=== PATIENT | female | born 1935 | race Caucasian/White ===

== ENCOUNTER 2020-12-13 10:12 | Emergency (ER) | payer BC ==
[~2020-12-13] VITALS: Ht 157.5 cm; Wt 59.1 kg
[~2020-12-13 10:12] MED LIST: ASPI-1265 PO; CHOL2000 PO; CYAN100061 IM; EST1T PO; LISI40TA13 PO; OMEP40CA13 PO; SYN0.1T PO
[2020-12-13 11:10] VITALS: BP 122/95
[2020-12-13] MEDS ORDERED: traMADol 50MG tablet PO ONE (11:50)
[2020-12-13] MEDS ORDERED: TRAM50TA2 PO (12:49)
== END 2020-12-13 13:09 | disposition home or self-care (01) ==
LOC: ER 10:13
DX: M25.532 Pain in left wrist (principal); I10 Essential (primary) hypertension; J44.9 Chronic obstructive pulmonary disease, unspecified; Z87.01 Personal history of pneumonia (recurrent); Z90.710 Acquired absence of both cervix and uterus; Z98.890 Other specified postprocedural states; Z88.2 Allergy status to sulfonamides; Z79.82 Long term (current) use of aspirin; Z79.899 Other long term (current) drug therapy
CPT/HCPCS: 29125; 73110; 73130; 99284

== ENCOUNTER 2021-07-01 15:03 | Emergency (ER) | payer BC ==
[~2021-07-01] VITALS: Ht 157.5 cm; Wt 56.8 kg
[~2021-07-01 15:03] MED LIST changes: -OMEP40CA13 PO; +OMEP40CA21 PO
[2021-07-01] MEDS ORDERED: BAMLANIVIMAB 700mg/20ml inj. 700 MG, ETESEVIMAB 700mg/20mL inj. 1,400 MG in normal sali... IV ONE (15:20)
[2021-07-01 18:46] VITALS: BP 177/80
== END 2021-07-01 18:47 | disposition home or self-care (01) ==
LOC: ER 15:04
DX: U07.1 COVID-19 (principal); R05.9 Cough, unspecified; R50.9 Fever, unspecified; R53.83 Other fatigue; I10 Essential (primary) hypertension; J44.9 Chronic obstructive pulmonary disease, unspecified; Z87.01 Personal history of pneumonia (recurrent); Z90.710 Acquired absence of both cervix and uterus; Z95.0 Presence of cardiac pacemaker; Z98.890 Other specified postprocedural states; Z88.2 Allergy status to sulfonamides; Z79.82 Long term (current) use of aspirin; Z79.899 Other long term (current) drug therapy
CPT/HCPCS: 71045; 99291; M0245; Q0245; Q0239

== ENCOUNTER 2023-06-05 15:18 | Inpatient (IN) | payer BC ==
[~2023-06-05] VITALS: Ht 157.5 cm; Wt 58.0 kg
[2023-06-05 15:36] LABS: BASOPHILS % (AUTO) 0.3 % (0-1); EOSINOPHILS # (AUTO) 0.2 X10'3 (0-0.9); EOSINOPHILS % (AUTO) 2.7 % (0-6); HEMATOCRIT 35.5 % (35.0-45.0); HEMOGLOBIN 11.9 g/dl (12.0-16.0); LYMPHOCYTES # (AUTO) 2.3 X10'3 (1.1-4.8); LYMPHOCYTES % (AUTO) 41.9 % (21-51); MEAN CORPUSCULAR HEMOGLOBIN 31.5 PG (27.0-31.0); MEAN CORPUSCULAR HGB CONC 33.6 g/dL (33.0-36.5); MEAN CORPUSCULAR VOLUME 93.9 FL (78-98); MEAN PLATELET VOLUME 8.5 FL (7.4-10.4); MONOCYTES # (AUTO) 0.4 X10'3 (0-0.9); MONOCYTES % (AUTO) 7.1 % (2-12); NEUTROPHILS # (AUTO) 2.6 X10'3 (1.8-7.7); PLATELET COUNT 224 X10'3 (140-440); RED BLOOD COUNT 3.78 X10'6 (4.20-5.60); RED CELL DISTRIBUTION WIDTH 13.4 % (11.5-14.5); WHITE BLOOD COUNT 5.5 X10'3 (4.5-11.0)
[2023-06-05 15:49] LABS: ALANINE AMINOTRANSFERASE 25 U/L (12-78); ALBUMIN 3.6 G/DL (3.4-5.0); ALBUMIN/GLOBULIN RATIO 1.1 (1.1-1.5); ALKALINE PHOSPHATASE 69 IU/L (46-116); ANION GAP 8 (8-16); ASPARTATE AMINO TRANSFERASE 25 U/L (10-37); BILIRUBIN,TOTAL 0.3 MG/DL (0.1-1.0); BLOOD UREA NITROGEN 9 MG/DL (7-18); BUN/CREATININE RATIO 8.6 (10.0-20.0); CALCIUM 9.1 MG/DL (8.5-10.1); CHLORIDE 100 MMOL/L (99-107); CREATININE 1.05 MG/DL (0.40-0.90); GLUCOSE 133 MG/DL (70-104); POTASSIUM 3.8 MMOL/L (3.5-5.1); SODIUM 135 MMOL/L (135-145); TOTAL CARBON DIOXIDE 27.2 MMOL/L (24-32); TOTAL PROTEIN 6.9 G/DL (6.4-8.2); eCRCL 29 ML/MIN; eGFR 49 ML/MIN
[2023-06-05 15:57] LABS: PRO BRAIN NATRIURETIC PEPTIDE 2320 PG/ML (0-450)
[2023-06-05] MEDS ORDERED: morphine 4 MG/ML inj SYRINge IV ONE (16:30)
[2023-06-05] MEDS ORDERED: furosemide 10 MG/1 ML 10ml inj IV ONE (16:30)
[2023-06-05] MEDS ORDERED: nitroGLYCERIN 0.4mg/hour patch TD ONE (16:30)
[2023-06-05] MEDS ORDERED: aspirin 81mg tab.chew PO ONE (16:30)
[2023-06-05] MEDS ORDERED: pantoprazole 40 MG vial IV ONE (16:30)
[2023-06-05] MEDS ORDERED: albuterol 2.5 MG/3 ML nebule NEB ONE (16:35)
[2023-06-05] MEDS ORDERED: pantoprazole 40MG/NS 100ML BAG 100 ML IV ONE (16:50)
[2023-06-05] MEDS ORDERED: SPIR25TA5 PO (16:52)
[2023-06-05] MEDS ORDERED: LEVO88TA2 PO (16:52)
[2023-06-05] MEDS ORDERED: APIX2.5T PO (16:52)
[2023-06-05] MEDS ORDERED: LISI40TA13 PO (16:52)
[2023-06-05] MEDS ORDERED: AMI200T PO (16:53)
[2023-06-05] MEDS ORDERED: PANT20TA18 PO (16:55)
[2023-06-05] MEDS ORDERED: ESTR0.5T28 PO (16:55)
[2023-06-05] MEDS ORDERED: METO50TA16 PO (16:55)
[2023-06-05] MEDS ORDERED: AMLO5TAB16 PO (16:55)
[2023-06-05] MEDS ORDERED: ACET-1995 PO (16:57)
[2023-06-05] MEDS ORDERED: LORA-269 PO (16:57)
[2023-06-05] MEDS ORDERED: MELA10CA2 PO (17:00)
[2023-06-05] MEDS ORDERED: MULT-1085 PO (17:00)
[2023-06-05] MEDS ORDERED: TRAM50TA2 PO (17:00)
[2023-06-05] MEDS ORDERED: CHOL500050 PO (17:00)
[2023-06-05] MEDS ORDERED: DIPH25CA83 PO (17:01)
[2023-06-05] MEDS ORDERED: SIME80TA15 PO (17:01)
[2023-06-05] MEDS ORDERED: ASCO500C7 PO (17:01)
[2023-06-05] MEDS ORDERED: ESTR42.510 VG (17:05)
[2023-06-05] MEDS ORDERED: potassium Cl 20 mEq SR tablet PO PRN ×2 (17:25)
[2023-06-05] MEDS ORDERED: magnesium Cl slow-release 64mg tablet PO PRN (17:25)
[2023-06-05] MEDS ORDERED: magnesium 2GM in 50ml NS 50 ML IV PRN (17:25)
[2023-06-05] MEDS ORDERED: magnesium 4gm in 100ml NS 100 ML IV PRN (17:25)
[2023-06-05] MEDS ORDERED: ondansetron/PF 4mg/2ml inj IV PRN (17:25)
[2023-06-05] MEDS ORDERED: potassium Cl 40MEQ/1/2NS 520ml 520 ML IV PRN (17:25)
[2023-06-05 17:44] LABS: APTT 27 SECONDS (22-32); PROTHROMBIN TIME 10.8 SECONDS (9.0-12.0)
[2023-06-05 17:50] VITALS: PULSE 61; RESP 14; O2SAT 100
[2023-06-05 17:51] LABS: MAGNESIUM 1.9 MG/DL (1.5-2.4)
[2023-06-05 18:09] LABS: DIGOXIN 0.2 NG/ML (0.9-1.9)
[2023-06-05 18:17] LABS: BILIRUBIN,URINE NEGATIVE (Neg); CLARITY,URINE CLEAR (Clear); COLOR,URINE STRAW (Yellow); GLUCOSE, URINE NEGATIVE (Neg); KETONES,URINE NEGATIVE (Neg); LEUKOCYTE ESTERASE ,URINE NEGATIVE (Neg); NITRITES, URINE NEGATIVE (Neg); OCCULT BLOOD,URINE NEGATIVE (Neg); PROTEIN,URINE NEGATIVE (Neg); UROBILINOGEN,URINE 0.2 E.U/dL (0.2-1.0)
[2023-06-05 18:22] LABS: UA COLLECTION TYPE CLN CATCH MIDSTREAM
[2023-06-05] MEDS: K and/or MAG REPLACEMENT MC SCH (20:00)
--- NOTE | 2023-06-05 22:20 | NUR ---
CRITICAL TROPONIN DRAWN ON PT. SHE DENIES CHEST PAIN AT THIS TIME. DR REY NOTIFIED AND HE CAME TO SEE HER AND PUT IN ORDERS FOR HEPARIN DRIP.
[2023-06-05] MEDS ORDERED: heparin 25,000 UNIT/250ml bag 250 ML IV PRN (23:20)
[2023-06-05] MEDS ORDERED: LORazepam 1 MG tablet PO PRN (23:20)
[2023-06-05] MEDS ORDERED: traMADol 50MG tablet PO PRN (23:20)
[2023-06-05] MEDS ORDERED: heparin 10,000 units/1 ML INJ IV ONE (23:20)
[2023-06-05] MEDS ORDERED: heparin 10,000 units/1 ML INJ IV PRN (23:20)
[2023-06-05 23:26] VITALS: BP 153/72; PULSE 62; RESP 18; TEMP 97.5; O2SAT 98
[2023-06-06] VITALS (15 sets, daily range): BP systolic 122–150; BP diastolic 48–112; PULSE 60–77; RESP 12–17; TEMP 97.5–98.7; O2SAT 94–97
[2023-06-06] MEDS ORDERED: acetaminophen 325mg tablet PO PRN (03:45)
--- NOTE | 2023-06-06 03:55 | NUR ---
PATIENT WAS HAVING PAIN DUE TO CHRONIC BACK ISSUES AND REQUESTED TYLENOL. DR REY ORDERED 650 MG TYLENOL Q6H PRN.
--- NOTE | 2023-06-06 06:10 | NUR ---
Patient in room PCU 3016. I have received report from Cher RAMOS and had the opportunity to ask questions and assume patient care.
--- NOTE | 2023-06-06 06:10 | NUR ---
Problems reprioritized. Patient report given, questions answered & plan of care reviewed with RACHEL GARCIA.
[2023-06-06 07:22] LABS: BASOPHILS % (AUTO) 0.4 % (0-1); EOSINOPHILS # (AUTO) 0.1 X10'3 (0-0.9); EOSINOPHILS % (AUTO) 2.3 % (0-6); HEMOGLOBIN 11.5 g/dl (12.0-16.0); LYMPHOCYTES # (AUTO) 2.1 X10'3 (1.1-4.8); LYMPHOCYTES % (AUTO) 33.2 % (21-51); MEAN CORPUSCULAR HEMOGLOBIN 31.5 PG (27.0-31.0); MEAN CORPUSCULAR HGB CONC 33.8 g/dL (33.0-36.5); MEAN CORPUSCULAR VOLUME 93.4 FL (78-98); MEAN PLATELET VOLUME 9.1 FL (7.4-10.4); MONOCYTES # (AUTO) 0.5 X10'3 (0-0.9); MONOCYTES % (AUTO) 7.9 % (2-12); NEUTROPHILS # (AUTO) 3.5 X10'3 (1.8-7.7); NEUTROPHILS % (AUTO) 56.2 % (42-75); PLATELET COUNT 194 X10'3 (140-440); RED BLOOD COUNT 3.64 X10'6 (4.20-5.60); RED CELL DISTRIBUTION WIDTH 13.3 % (11.5-14.5); WHITE BLOOD COUNT 6.2 X10'3 (4.5-11.0)
[2023-06-06 07:39] LABS: ALBUMIN 3.5 G/DL (3.4-5.0); ANION GAP 8 (8-16); BLOOD UREA NITROGEN 16 MG/DL (7-18); CALCIUM 9.4 MG/DL (8.5-10.1); CHLORIDE 98 MMOL/L (99-107); CREATININE 1.33 MG/DL (0.40-0.90); GLUCOSE 101 MG/DL (70-104); MAGNESIUM 1.9 MG/DL (1.5-2.4); POTASSIUM 3.8 MMOL/L (3.5-5.1); SODIUM 134 MMOL/L (135-145); TOTAL CARBON DIOXIDE 27.8 MMOL/L (24-32); eCRCL 23 ML/MIN; eGFR 38 ML/MIN
[2023-06-06] MEDS: K and/or MAG REPLACEMENT MC SCH ×2 (08:00→20:00)
[2023-06-06] MEDS: aspirin 81mg, enteric-coated 1 TAB TABLET.DR PO SCH (08:07)
[2023-06-06] MEDS: pantoprazole 40mg Tablet.DR PO SCH (08:07)
[2023-06-06] MEDS: metoprolol tartrate 25mg tablet PO SCH (08:07)
[2023-06-06] MEDS: lisinopril 20mg tablet PO SCH (08:08)
[2023-06-06] MEDS: levoTHYROXINE 88mcg tablet PO SCH (08:08)
[2023-06-06] MEDS: amLODIPine 5mg tablet PO SCH (08:08)
[2023-06-06] MEDS ORDERED: amiodarone 200mg tablet PO SCH (14:00)
[2023-06-06] MEDS ORDERED: verapamil 2.5 mg/ml inj IV ONE (17:00)
[2023-06-06] MEDS ORDERED: iohexol 350 MG/ML 50ML vial IV ONE ×2 (17:01→18:06)
[2023-06-06] MEDS ORDERED: fentaNYL/PF 50MCG/1 ML 2ML syringe ONE (17:01)
[2023-06-06] MEDS ORDERED: LIDOcaine 1% (10mg/ml)w/preservative inj. 20ml MDV ONE (17:01)
[2023-06-06] MEDS ORDERED: heparin 1,000unit/ml 10ml vial 10 ML ONE (17:01)
[2023-06-06] MEDS ORDERED: iohexol 350MG/ML 100ml bottle IV ONE (17:01)
[2023-06-06] MEDS ORDERED: midazolam 1 mg/ML 2ml injection ONE (17:01)
[2023-06-06] MEDS ORDERED: clopidogrel 300mg tablet ONE (18:02)
[2023-06-06] MEDS ORDERED: aspirin 325mg tablet ONE (18:02)
--- NOTE | 2023-06-06 18:27 | NUR ---
Problems reprioritized. 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
--- NOTE | 2023-06-06 18:54 | NUR ---
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 vital signs is stable, R wrist access covered with vascband ,dry no blood stain.Pt complained of nausea and mild chest pain in the presence of the OR nurse. Will continue to monitor
--- NOTE | 2023-06-06 19:19 | NUR ---
pt complained of chest pain that started on the L upper chest wall where she has a pace maker and radiates to her L lateral side . EKG was done and morphine given.
[2023-06-06] MEDS ORDERED: HYDROcodone/acetaminophen 5mg/325mg tablet PO PRN (19:25)
[2023-06-06] MEDS ORDERED: HYDROcodone/acetaminophen 10/325mg tab PO PRN (19:25)
[2023-06-06] MEDS: morphine 2 MG/ML inj. syringe IV PRN (19:31)
[2023-06-06] MEDS: ondansetron 4mg rapidly disintigrating tab PO PRN (19:37)
[2023-06-06] MEDS ORDERED: Melatonin 3mg tablet PO SCH (21:00)
[2023-06-07] MEDS: morphine 2 MG/ML inj. syringe IV PRN (01:12)
[2023-06-07 02:00] VITALS: BP 125/66; PULSE 66; RESP 18; TEMP 98.1; O2SAT 95
[2023-06-07] MEDS: ondansetron 4mg rapidly disintigrating tab PO PRN ×2 (02:46→10:01)
--- NOTE | 2023-06-07 02:55 | NUR ---
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 prescribed zofran was given
--- NOTE | 2023-06-07 06:20 | NUR ---
Problems reprioritized. Patient report given, questions answered & plan of care reviewed with Sabi.
[2023-06-07 07:31] LABS: EOSINOPHILS # (AUTO) 0.1 X10'3 (0-0.9); EOSINOPHILS % (AUTO) 0.9 % (0-6); HEMOGLOBIN 11.6 g/dl (12.0-16.0); LYMPHOCYTES # (AUTO) 1.3 X10'3 (1.1-4.8); MONOCYTES # (AUTO) 0.4 X10'3 (0-0.9)
[2023-06-07 07:33] LABS: BASOPHILS % (AUTO) 0.3 % (0-1); HEMATOCRIT 34.5 % (35.0-45.0); LYMPHOCYTES % (AUTO) 20.9 % (21-51); MEAN CORPUSCULAR HEMOGLOBIN 31.6 PG (27.0-31.0); MEAN CORPUSCULAR HGB CONC 33.5 g/dL (33.0-36.5); MEAN CORPUSCULAR VOLUME 94.3 FL (78-98); MEAN PLATELET VOLUME 8.4 FL (7.4-10.4); MONOCYTES % (AUTO) 6.4 % (2-12); NEUTROPHILS # (AUTO) 4.4 X10'3 (1.8-7.7); NEUTROPHILS % (AUTO) 71.5 % (42-75); PLATELET COUNT 197 X10'3 (140-440); RED BLOOD COUNT 3.66 X10'6 (4.20-5.60); WHITE BLOOD COUNT 6.2 X10'3 (4.5-11.0)
[2023-06-07 07:51] LABS: ALBUMIN 3.3 G/DL (3.4-5.0); ANION GAP 8 (8-16); BLOOD UREA NITROGEN 12 MG/DL (7-18); BUN/CREATININE RATIO 13.3 (10.0-20.0); CALCIUM 8.9 MG/DL (8.5-10.1); CHLORIDE 98 MMOL/L (99-107); GLUCOSE 117 MG/DL (70-104); MAGNESIUM 1.9 MG/DL (1.5-2.4); SODIUM 131 MMOL/L (135-145); TOTAL CARBON DIOXIDE 25.1 MMOL/L (24-32); eCRCL 34 ML/MIN; eGFR 59 ML/MIN
[2023-06-07] MEDS: levoTHYROXINE 88mcg tablet PO SCH (07:55)
[2023-06-07] MEDS: pantoprazole 40mg Tablet.DR PO SCH (07:55)
[2023-06-07 08:00] VITALS: RESP 10; RESP 11; O2SAT 96
[2023-06-07] MEDS ORDERED: clopidogrel 75mg tablet PO SCH (08:00)
[2023-06-07] MEDS ORDERED: ESTRADIOL 1 GM VG SCH (08:00)
[2023-06-07] MEDS: aspirin 81mg, enteric-coated 1 TAB TABLET.DR PO SCH (10:01)
[2023-06-07] MEDS: amLODIPine 5mg tablet PO SCH (10:03)
[2023-06-07] MEDS: metoprolol tartrate 25mg tablet PO SCH (10:03)
[2023-06-07 10:04] VITALS: BP_SYST 149; PULSE 79
[2023-06-07] MEDS: lisinopril 20mg tablet PO SCH (10:04)
[2023-06-07] MEDS ORDERED: CLOP75TA34 PO (11:54)
[2023-06-07] MEDS ORDERED: ASPI-1265 PO (11:54)
--- NOTE | 2023-06-07 16:09 | NUR ---
Pt stable for discharge per Dr. Millard. All discharge instructions reviewed with patient and all questions answered, pt verbalized understanding. New meds e-scripted to Tadeo Carey. PIV discontinued, cannula intact. Tele discontinued. All belongings collected and sent with patient. Wheeled to lobby via nursing staff and picked up by daughter.
== END 2023-06-07 14:52 | disposition home or self-care (01) | DRG 247 ==
LOC: ER 15:18 → ED HOLD 17:29 → EDBEDREQ 18:00 → PCU 3S 19:15
PROVIDERS: ADMIT Internal Medicine; ATTEND Internal Medicine
PROC: 4A023N7 Measurement of Cardiac Sampling and Pressure, Left Heart, Percutaneous Approach (ICD-10-PCS; principal; 2023-06-05)
PROC: B2111ZZ Fluoroscopy of Multiple Coronary Arteries using Low Osmolar Contrast (ICD-10-PCS; 2023-06-05)
PROC: B2151ZZ Fluoroscopy of Left Heart using Low Osmolar Contrast (ICD-10-PCS; 2023-06-05)
PROC: 027034Z Dilation of Coronary Artery, One Artery with Drug-eluting Intraluminal Device, Percutaneous Approach (ICD-10-PCS; 2023-06-05)
DX: I21.4 Non-ST elevation (NSTEMI) myocardial infarction (principal); E03.9 Hypothyroidism, unspecified; E78.5 Hyperlipidemia, unspecified; G89.29 Other chronic pain; I10 Essential (primary) hypertension; I25.10 Atherosclerotic heart disease of native coronary artery without angina pectoris; I48.91 Unspecified atrial fibrillation; Z79.01 Long term (current) use of anticoagulants; Z79.02 Long term (current) use of antithrombotics/antiplatelets; Z79.82 Long term (current) use of aspirin; Z88.2 Allergy status to sulfonamides; Z87.11 Personal history of peptic ulcer disease; Z87.891 Personal history of nicotine dependence; Z90.711 Acquired absence of uterus with remaining cervical stump; Z95.0 Presence of cardiac pacemaker
CPT/HCPCS: 36415; 71045; 80048; 80053; 80162; 81003; 83735; 83880; 84100; 84443; 84484; 85025; 85610; 85730; 87081; 93005; 94640; 94760; 99285; C9113; G0378; J1644; J1940; J2250; J2270; J3010; J3490; J7030; Q9967

== ENCOUNTER 2023-06-21 17:35 | Inpatient (IN) | payer BC ==
[~2023-06-21] VITALS: Ht 154.9 cm; Wt 52.8 kg
[~2023-06-21 17:35] MED LIST changes: +ACET-1995 PO; +AMI200T PO; +AMLO5TAB16 PO; +APIX2.5T PO; +ASCO500C7 PO; -CHOL2000 PO; +CHOL500050 PO; +CLOP75TA34 PO; -CYAN100061 IM; -EST1T PO; +ESTR42.510 VG; +LEVO88TA2 PO; +MELA10CA2 PO; +METO50TA16 PO; +MULT-1085 PO; -OMEP40CA21 PO; +PANT20TA18 PO; +SPIR25TA5 PO; -SYN0.1T PO; +TRAM50TA2 PO
[2023-06-21 18:12] LABS: BASOPHILS % (AUTO) 0.4 % (0-1); EOSINOPHILS # (AUTO) 0.1 X10'3 (0-0.9); EOSINOPHILS % (AUTO) 2.1 % (0-6); HEMATOCRIT 32.3 % (35.0-45.0); HEMOGLOBIN 10.9 g/dl (12.0-16.0); LYMPHOCYTES # (AUTO) 1.6 X10'3 (1.1-4.8); MEAN CORPUSCULAR HEMOGLOBIN 31.9 PG (27.0-31.0); MEAN CORPUSCULAR HGB CONC 33.8 g/dL (33.0-36.5); MEAN CORPUSCULAR VOLUME 94.4 FL (78-98); MEAN PLATELET VOLUME 8.6 FL (7.4-10.4); MONOCYTES # (AUTO) 0.3 X10'3 (0-0.9); MONOCYTES % (AUTO) 5.7 % (2-12); NEUTROPHILS # (AUTO) 3.7 X10'3 (1.8-7.7); NEUTROPHILS % (AUTO) 63.8 % (42-75); PLATELET COUNT 304 X10'3 (140-440); RED BLOOD COUNT 3.42 X10'6 (4.20-5.60); RED CELL DISTRIBUTION WIDTH 13.2 % (11.5-14.5); WHITE BLOOD COUNT 5.8 X10'3 (4.5-11.0)
[2023-06-21 18:17] LABS: ALANINE AMINOTRANSFERASE 69 U/L (12-78); ALBUMIN 3.3 G/DL (3.4-5.0); ALBUMIN/GLOBULIN RATIO 0.9 (1.1-1.5); ALKALINE PHOSPHATASE 129 IU/L (46-116); ANION GAP 9 (8-16); ASPARTATE AMINO TRANSFERASE 75 U/L (10-37); BILIRUBIN,TOTAL 0.2 MG/DL (0.1-1.0); BLOOD UREA NITROGEN 15 MG/DL (7-18); BUN/CREATININE RATIO 10.7 (10.0-20.0); CALCIUM 8.8 MG/DL (8.5-10.1); CHLORIDE 93 MMOL/L (99-107); GLUCOSE 178 MG/DL (70-104); POTASSIUM 4.6 MMOL/L (3.5-5.1); SODIUM 125 MMOL/L (135-145); TOTAL CARBON DIOXIDE 23.5 MMOL/L (24-32); TOTAL PROTEIN 6.8 G/DL (6.4-8.2); eCRCL 21 ML/MIN; eGFR 35 ML/MIN
[2023-06-21 18:26] LABS: PRO BRAIN NATRIURETIC PEPTIDE 7699 PG/ML (0-450)
--- NOTE | 2023-06-21 19:33 | NUR ---
pt in room. 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 Accompanied by family. will continue to monitor.
[2023-06-21] MEDS ORDERED: aspirin 325mg tablet PO ONE (20:40)
[2023-06-21] MEDS ORDERED: nitroGLYCERIN 1gm ointment UD TP ONE (20:40)
[2023-06-21] MEDS ORDERED: furosemide 10 MG/1 ML 10ml inj IV ONE (20:40)
[2023-06-21] MEDS ORDERED: traMADol 50MG tablet PO STA (22:06)
[2023-06-22] VITALS (10 sets, daily range): BP systolic 146–189; BP diastolic 56–99; PULSE 60–64; RESP 8–22; TEMP 97–98.1; O2SAT 90–100
[2023-06-22] MEDS ORDERED: HYDROcodone/acetaminophen 5mg/325mg tablet PO PRN (00:30)
[2023-06-22] MEDS ORDERED: mag hydrox/Alum hydrox/simeth 30ml oral suspension PO PRN (00:30)
[2023-06-22] MEDS ORDERED: acetaminophen 650mg rectal suppository RC PRN (00:30)
[2023-06-22] MEDS ORDERED: diphenhydrAMINE 50 mg/ml inj IV PRN (00:30)
[2023-06-22] MEDS ORDERED: ondansetron 4mg rapidly disintigrating tab PO PRN (00:30)
[2023-06-22] MEDS ORDERED: magnesium hydroxide 30ml (MOM) UD suspension PO PRN (00:30)
[2023-06-22] MEDS ORDERED: ondansetron/PF 4mg/2ml inj IV PRN (00:30)
[2023-06-22] MEDS ORDERED: acetaminophen 325mg tablet PO PRN (00:30)
[2023-06-22] MEDS ORDERED: morphine 2 MG/ML inj. syringe IV PRN ×2 (00:30)
[2023-06-22] MEDS ORDERED: bisacodyl 10mg suppository rectal RC PRN (00:30)
[2023-06-22] MEDS ORDERED: diphenhydrAMINE 25mg capsule PO PRN (00:30)
--- NOTE | 2023-06-22 00:31 | NUR ---
pt states she has been trying and trying to pee. Straining. Has pain in her abdomen from "feeling full" ordered [facility] and ua.
--- NOTE | 2023-06-22 01:00 | NUR ---
PT is a&o x4, c/o full bladder. [facility] initiated. Pt connected to tele monitor. Pt given PO meds, tolerated well.
[2023-06-22 01:52] LABS: APTT 28 SECONDS (22-32); D-DIMER 0.71 MG/L FEU (0-0.50); HEMOGLOBIN A1C 5.7 % (4.5-6.2); PROTHROMBIN TIME 11.1 SECONDS (9.0-12.0)
[2023-06-22 01:59] LABS: MAGNESIUM 1.9 MG/DL (1.5-2.4); PHOSPHORUS 3.5 MG/DL (2.3-4.5)
[2023-06-22] MEDS: normal saline 1000ml 1,000 ML IV SCH ×3 (02:56→16:25)
[2023-06-22] MEDS: ipratropium/albuterol 3ml nebule NEB SCH ×2 (03:05→07:00)
--- NOTE | 2023-06-22 03:06 | NUR ---
1200mL of yellow urine removed from [facility], clear, yellow and malodorous
[2023-06-22] MEDS ORDERED: predniSONE 20 mg tablet PO SCH (08:00)
[2023-06-22] MEDS ORDERED: DOXYCYCLINE 100MG CAPSULE PO SCH (08:00)
[2023-06-22] MEDS ORDERED: heparin, porcine 5000 units/ml vial SQ SCH (08:00)
[2023-06-22] MEDS: aspirin 81mg tab.chew PO SCH (08:00)
[2023-06-22] MEDS ORDERED: docusate sod 100mg capsule PO SCH (08:00)
[2023-06-22] MEDS: metoprolol tartrate 50mg tablet PO SCH (08:00)
[2023-06-22 10:03] LABS: ALANINE AMINOTRANSFERASE 51 U/L (12-78); ALBUMIN 3.1 G/DL (3.4-5.0); ALBUMIN/GLOBULIN RATIO 0.9 (1.1-1.5); ALKALINE PHOSPHATASE 124 IU/L (46-116); ANION GAP 6 (8-16); ASPARTATE AMINO TRANSFERASE 48 U/L (10-37); BILIRUBIN,TOTAL 0.3 MG/DL (0.1-1.0); BLOOD UREA NITROGEN 14 MG/DL (7-18); BUN/CREATININE RATIO 10.3 (10.0-20.0); CHLORIDE 96 MMOL/L (99-107); CREATININE 1.36 MG/DL (0.40-0.90); GLUCOSE 101 MG/DL (70-104); SODIUM 128 MMOL/L (135-145); TOTAL CARBON DIOXIDE 25.9 MMOL/L (24-32); TOTAL PROTEIN 6.5 G/DL (6.4-8.2); eCRCL 22 ML/MIN; eGFR 37 ML/MIN
[2023-06-22 10:08] LABS: BASOPHILS % (AUTO) 0.6 % (0-1); EOSINOPHILS # (AUTO) 0.1 X10'3 (0-0.9); HEMATOCRIT 32.8 % (35.0-45.0); HEMOGLOBIN 11.2 g/dl (12.0-16.0); LYMPHOCYTES # (AUTO) 1.4 X10'3 (1.1-4.8); LYMPHOCYTES % (AUTO) 23.8 % (21-51); MEAN CORPUSCULAR HGB CONC 34.1 g/dL (33.0-36.5); MEAN CORPUSCULAR VOLUME 93.9 FL (78-98); MEAN PLATELET VOLUME 8.6 FL (7.4-10.4); MONOCYTES # (AUTO) 0.5 X10'3 (0-0.9); MONOCYTES % (AUTO) 7.6 % (2-12); NEUTROPHILS # (AUTO) 4.1 X10'3 (1.8-7.7); PLATELET COUNT 305 X10'3 (140-440); RED BLOOD COUNT 3.49 X10'6 (4.20-5.60); RED CELL DISTRIBUTION WIDTH 13.3 % (11.5-14.5); WHITE BLOOD COUNT 6.1 X10'3 (4.5-11.0)
[2023-06-22 10:13] LABS: FREE T4 (FREE THYROXINE) 1.42 NG/DL (0.73-1.40); THYROID STIMULATING HORMONE 6.53 ulU/ml (0.34-4.50)
[2023-06-22] MEDS: lisinopril 20mg tablet PO SCH (10:25)
[2023-06-22] MEDS: clopidogrel 75mg tablet PO SCH (10:25)
[2023-06-22] MEDS: pantoprazole 40mg Tablet.DR PO SCH (10:25)
[2023-06-22] MEDS: cholecalciferol (vitamin D3) 1,000 unit (25mcg) tablet PO SCH (10:25)
[2023-06-22] MEDS: ascorbic acid 500mg tablet PO SCH (10:25)
[2023-06-22] MEDS: multivitamins, therapeutics tablet PO SCH (10:25)
[2023-06-22] MEDS: spironolactone 25 MG tablet PO SCH (10:25)
[2023-06-22] MEDS: apixaban 2.5mg tablet PO SCH ×2 (10:25→20:02)
[2023-06-22] MEDS ORDERED: ipratropium/albuterol 3ml nebule NEB PRN (11:00)
[2023-06-22] MEDS: amiodarone 200mg tablet PO SCH (14:00)
[2023-06-22] MEDS ORDERED: hydrALAZINE 25 MG tablet PO PRN (16:30)
[2023-06-22] MEDS: acetaminophen 325mg tablet PO PRN (20:01)
[2023-06-22] MEDS: Melatonin 3mg tablet PO SCH (20:03)
[2023-06-22] MEDS: furosemide 20 MG/2 ML vial IV SCH (20:04)
[2023-06-22] MEDS ORDERED: temazepam 15mg capsule PO PRN (21:00)
[2023-06-22 21:42] LABS: BILIRUBIN,URINE NEGATIVE (Neg); CLARITY,URINE SLIGHTLY CLOUDY (Clear); COLOR,URINE YELLOW (Yellow); GLUCOSE, URINE NEGATIVE (Neg); KETONES,URINE TRACE mg/dl (Neg); LEUKOCYTE ESTERASE ,URINE NEGATIVE (Neg); NITRITES, URINE NEGATIVE (Neg); OCCULT BLOOD,URINE LARGE (Neg); PROTEIN,URINE TRACE mg/dl (Neg); UROBILINOGEN,URINE 0.2 E.U/dL (0.2-1.0)
[2023-06-22 22:01] LABS: UA COLLECTION TYPE CLN CATCH MIDSTREAM
[2023-06-22 22:06] LABS: HYALINE CASTS 0-3 /LPF (NEGATIVE); MUCUS STRANDS FEW /LPF (Neg); SQUAMOUS EPITHELIAL CELL,UR MODERATE /LPF (FEW)
[2023-06-22 22:09] LABS: BACTERIA,URINE FEW /HPF (Neg); RBC,URINE 20-50 /HPF (0-2); TRANSITIONAL EPI CELLS,URINE FEW /HPF; WBC,URINE 0-4 /HPF (0-4)
[2023-06-22 22:13] LABS: YEAST FEW /HPF (NEGATIVE)
[2023-06-23] VITALS (10 sets, daily range): BP systolic 107–162; BP diastolic 52–67; PULSE 60–66; RESP 12–18; TEMP 97.2–98.3; O2SAT 95–97
[2023-06-23] MEDS ORDERED: LORA-269 PO (04:08)
[2023-06-23] MEDS ORDERED: DIF150T PO (04:08)
--- NOTE | 2023-06-23 06:25 | NUR ---
Patient in room PCU 3010. I have received report from [employer] RAMOS and had the opportunity to ask questions and assume patient care.
[2023-06-23] MEDS: furosemide 20 MG/2 ML vial IV SCH ×2 (07:16→14:45)
[2023-06-23 07:28] LABS: BASOPHILS % (AUTO) 0.3 % (0-1); EOSINOPHILS % (AUTO) 0.1 % (0-6); HEMATOCRIT 35.2 % (35.0-45.0); HEMOGLOBIN 11.9 g/dl (12.0-16.0); LYMPHOCYTES # (AUTO) 1.8 X10'3 (1.1-4.8); LYMPHOCYTES % (AUTO) 22.7 % (21-51); MEAN CORPUSCULAR HEMOGLOBIN 31.5 PG (27.0-31.0); MEAN CORPUSCULAR HGB CONC 33.9 g/dL (33.0-36.5); MEAN CORPUSCULAR VOLUME 92.9 FL (78-98); MEAN PLATELET VOLUME 8.4 FL (7.4-10.4); MONOCYTES # (AUTO) 0.5 X10'3 (0-0.9); MONOCYTES % (AUTO) 6.1 % (2-12); NEUTROPHILS # (AUTO) 5.7 X10'3 (1.8-7.7); NEUTROPHILS % (AUTO) 70.8 % (42-75); PLATELET COUNT 337 X10'3 (140-440); RED BLOOD COUNT 3.79 X10'6 (4.20-5.60); RED CELL DISTRIBUTION WIDTH 13.3 % (11.5-14.5)
[2023-06-23 07:33] LABS: ALANINE AMINOTRANSFERASE 40 U/L (12-78); ALBUMIN 3.1 G/DL (3.4-5.0); ALBUMIN/GLOBULIN RATIO 0.9 (1.1-1.5); ALKALINE PHOSPHATASE 117 IU/L (46-116); ANION GAP 11 (8-16); ASPARTATE AMINO TRANSFERASE 31 U/L (10-37); BILIRUBIN,TOTAL 0.4 MG/DL (0.1-1.0); BLOOD UREA NITROGEN 15 MG/DL (7-18); BUN/CREATININE RATIO 11.8 (10.0-20.0); CALCIUM 9.1 MG/DL (8.5-10.1); CHLORIDE 93 MMOL/L (99-107); CHOL/HDL RATIO 3.8 (0.00-4.99); CHOLESTEROL 185 MG/DL (0-200); CREATININE 1.27 MG/DL (0.40-0.90); GLUCOSE 117 MG/DL (70-104); HDL CHOLESTEROL 49 MG/DL (35-60); LDL CHOLESTEROL 116 MG/DL (50-100); POTASSIUM 4.1 MMOL/L (3.5-5.1); SODIUM 125 MMOL/L (135-145); TOTAL CARBON DIOXIDE 21.2 MMOL/L (24-32); TOTAL PROTEIN 6.5 G/DL (6.4-8.2); TRIGLYCERIDES 111 MG/DL (20-135); eCRCL 23 ML/MIN; eGFR 40 ML/MIN
[2023-06-23] MEDS: ESTRADIOL VG SCH (08:00)
[2023-06-23] MEDS: pantoprazole 40mg Tablet.DR PO SCH (08:10)
[2023-06-23] MEDS: multivitamins, therapeutics tablet PO SCH (08:10)
[2023-06-23] MEDS: ascorbic acid 500mg tablet PO SCH (08:10)
[2023-06-23] MEDS: clopidogrel 75mg tablet PO SCH (08:10)
[2023-06-23] MEDS: cholecalciferol (vitamin D3) 1,000 unit (25mcg) tablet PO SCH (08:11)
[2023-06-23] MEDS: levoTHYROXINE 88mcg tablet PO SCH (08:11)
[2023-06-23] MEDS: spironolactone 25 MG tablet PO SCH (08:11)
[2023-06-23] MEDS: apixaban 2.5mg tablet PO SCH ×2 (08:11→21:48)
[2023-06-23] MEDS: aspirin 81mg tab.chew PO SCH (08:11)
[2023-06-23] MEDS: lisinopril 20mg tablet PO SCH (08:12)
[2023-06-23] MEDS: metoprolol tartrate 50mg tablet PO SCH (08:12)
--- NOTE | 2023-06-23 10:38 | NUR ---
Spoke with Dr Galo about patient's home order for Ativan 1 mg QHS Addendum: 06/23/23 at 1039 by Michelle Bueno LVN, LVN gave order to resume patient's ativan order
--- NOTE | 2023-06-23 11:47 | NUR ---
PAGER ID: [phone] MESSAGE: [phone] Saini Patient has a critical Trop of 430. Thank you Michelle PURVIS [phone]
--- NOTE | 2023-06-23 12:19 | NUR ---
Spoke with Dr Shipley about patient's Critical troponin of 430. No new orders at this time.
[2023-06-23] MEDS: amiodarone 200mg tablet PO SCH (14:57)
[2023-06-23] MEDS ORDERED: nitroGLYCERIN 0.4mg SUBLingual tab SL PRN (15:55)
--- NOTE | 2023-06-23 16:15 | NUR ---
Patient complained of chest pain. EKG done. Contacted resident and notified that patient is having chest pain. Dr gave order for Nitro sublingual. EKG signed by Dr Shipley.
--- NOTE | 2023-06-23 16:20 | NUR ---
1 dose of Nitro given and patient states that the medication is effective.
--- NOTE | 2023-06-23 18:10 | NUR ---
Problems reprioritized. Patient report given, questions answered & plan of care reviewed with Cisco RAMOS.
[2023-06-23] MEDS: acetaminophen 325mg tablet PO PRN (21:47)
[2023-06-23] MEDS: Melatonin 3mg tablet PO SCH (21:48)
[2023-06-23] MEDS: LORazepam 1 MG tablet PO PRN (21:48)
[2023-06-24] VITALS (7 sets, daily range): BP systolic 95–116; BP diastolic 46–66; PULSE 60–63; RESP 12–18; TEMP 97–98.3; O2SAT 94–99
--- NOTE | 2023-06-24 06:22 | NUR ---
Patient in room PCU 3010. I have received report from [employer] RAMOS and had the opportunity to ask questions and assume patient care.
[2023-06-24 07:42] LABS: BASOPHILS % (AUTO) 0.4 % (0-1); EOSINOPHILS # (AUTO) 0.1 X10'3 (0-0.9); HEMATOCRIT 32.8 % (35.0-45.0); HEMOGLOBIN 11.1 g/dl (12.0-16.0); LYMPHOCYTES # (AUTO) 1.6 X10'3 (1.1-4.8); LYMPHOCYTES % (AUTO) 29.3 % (21-51); MEAN CORPUSCULAR HEMOGLOBIN 31.9 PG (27.0-31.0); MEAN CORPUSCULAR VOLUME 93.7 FL (78-98); MEAN PLATELET VOLUME 8.5 FL (7.4-10.4); MONOCYTES # (AUTO) 0.5 X10'3 (0-0.9); MONOCYTES % (AUTO) 8.2 % (2-12); NEUTROPHILS # (AUTO) 3.4 X10'3 (1.8-7.7); NEUTROPHILS % (AUTO) 61.1 % (42-75); PLATELET COUNT 285 X10'3 (140-440); RED CELL DISTRIBUTION WIDTH 13.2 % (11.5-14.5); WHITE BLOOD COUNT 5.6 X10'3 (4.5-11.0)
[2023-06-24 08:02] LABS: ALANINE AMINOTRANSFERASE 36 U/L (12-78); ALBUMIN 2.8 G/DL (3.4-5.0); ALBUMIN/GLOBULIN RATIO 0.9 (1.1-1.5); ALKALINE PHOSPHATASE 92 IU/L (46-116); ANION GAP 5 (8-16); ASPARTATE AMINO TRANSFERASE 25 U/L (10-37); BILIRUBIN,TOTAL 0.4 MG/DL (0.1-1.0); BLOOD UREA NITROGEN 19 MG/DL (7-18); BUN/CREATININE RATIO 14.2 (10.0-20.0); CALCIUM 8.7 MG/DL (8.5-10.1); CHLORIDE 92 MMOL/L (99-107); CREATININE 1.34 MG/DL (0.40-0.90); GLUCOSE 97 MG/DL (70-104); POTASSIUM 3.7 MMOL/L (3.5-5.1); SODIUM 126 MMOL/L (135-145); TOTAL CARBON DIOXIDE 28.6 MMOL/L (24-32); TOTAL PROTEIN 5.9 G/DL (6.4-8.2); eCRCL 22 ML/MIN; eGFR 37 ML/MIN
[2023-06-24] MEDS: cholecalciferol (vitamin D3) 1,000 unit (25mcg) tablet PO SCH (08:11)
[2023-06-24] MEDS: lisinopril 20mg tablet PO SCH (08:11)
[2023-06-24] MEDS: clopidogrel 75mg tablet PO SCH (08:12)
[2023-06-24] MEDS: multivitamins, therapeutics tablet PO SCH (08:12)
[2023-06-24] MEDS: ascorbic acid 500mg tablet PO SCH (08:12)
[2023-06-24] MEDS: aspirin 81mg tab.chew PO SCH (08:12)
[2023-06-24] MEDS: apixaban 2.5mg tablet PO SCH ×2 (08:12→21:03)
[2023-06-24] MEDS: levoTHYROXINE 88mcg tablet PO SCH (08:12)
[2023-06-24] MEDS: metoprolol tartrate 50mg tablet PO SCH (08:12)
[2023-06-24] MEDS: pantoprazole 40mg Tablet.DR PO SCH (08:13)
[2023-06-24] MEDS: spironolactone 25 MG tablet PO SCH (08:13)
[2023-06-24] MEDS: furosemide 20 MG/2 ML vial IV SCH (08:19)
--- NOTE | 2023-06-24 08:24 | NUR ---
Called critical troponin result of [address] Patel. Asked if we can continue patient's tele order. gave the okay to continue it.
--- NOTE | 2023-06-24 12:09 | NUR ---
Dr Galo gave orders for a BMP 12 hours after last BMP was drawn
[2023-06-24] MEDS: amiodarone 200mg tablet PO SCH (14:00)
[2023-06-24] MEDS ORDERED: pantoprazole 40mg Tablet.DR PO SCH (14:46)
[2023-06-24] MEDS: normal saline 1000ml 1,000 ML IV SCH (16:25)
--- NOTE | 2023-06-24 17:44 | NUR ---
HYUN Medication Administration: For this medication-pass time frame, all medication were reviewed, dispensed, administered and documented per hospital policy by HYUN STOLL.
--- NOTE | 2023-06-24 17:44 | NUR ---
SECURITY SYSTEMS INSTALLER documentation: I have reviewed and agree with all interventions, assessments performed and documented by HYUN STOLL.
--- NOTE | 2023-06-24 18:29 | NUR ---
Problems reprioritized. Patient report given, questions answered & plan of care reviewed with Cisco RAMOS.
[2023-06-24] MEDS ORDERED: loperamide 2mg capsule PO PRN (19:05)
[2023-06-24] MEDS ORDERED: CefTRIAXone/D5W-Rocephin 1gm 50 ML IV ONE (19:10)
[2023-06-24] MEDS: Melatonin 3mg tablet PO SCH (21:03)
[2023-06-24] MEDS: HYDROcodone/acetaminophen 10/325mg tab PO PRN (21:04)
[2023-06-24] MEDS: LORazepam 1 MG tablet PO PRN (21:34)
[2023-06-25 02:00] VITALS: BP 114/49; PULSE 60; RESP 14; TEMP 97.1; O2SAT 96
[2023-06-25] MEDS: HYDROcodone/acetaminophen 10/325mg tab PO PRN (02:06)
[2023-06-25 06:00] VITALS: BP 95/43; PULSE 70; RESP 16; TEMP 97.8; O2SAT 97
--- NOTE | 2023-06-25 06:40 | NUR ---
Patient in room PCU 3010. I have received report from Doug RAMOS and had the opportunity to ask questions and assume patient care.
[2023-06-25 07:02] LABS: BASOPHILS % (AUTO) 0.3 % (0-1); EOSINOPHILS # (AUTO) 0.1 X10'3 (0-0.9); EOSINOPHILS % (AUTO) 0.8 % (0-6); HEMATOCRIT 35.3 % (35.0-45.0); LYMPHOCYTES # (AUTO) 1.5 X10'3 (1.1-4.8); LYMPHOCYTES % (AUTO) 19.5 % (21-51); MEAN CORPUSCULAR HEMOGLOBIN 31.4 PG (27.0-31.0); MEAN CORPUSCULAR HGB CONC 33.9 g/dL (33.0-36.5); MEAN CORPUSCULAR VOLUME 92.6 FL (78-98); MEAN PLATELET VOLUME 8.3 FL (7.4-10.4); MONOCYTES # (AUTO) 0.5 X10'3 (0-0.9); MONOCYTES % (AUTO) 6.6 % (2-12); NEUTROPHILS # (AUTO) 5.8 X10'3 (1.8-7.7); NEUTROPHILS % (AUTO) 72.8 % (42-75); PLATELET COUNT 314 X10'3 (140-440); RED BLOOD COUNT 3.81 X10'6 (4.20-5.60); RED CELL DISTRIBUTION WIDTH 13.2 % (11.5-14.5); WHITE BLOOD COUNT 7.9 X10'3 (4.5-11.0)
[2023-06-25 07:22] LABS: ALANINE AMINOTRANSFERASE 28 U/L (12-78); ALBUMIN/GLOBULIN RATIO 0.9 (1.1-1.5); ALKALINE PHOSPHATASE 95 IU/L (46-116); ANION GAP 8 (8-16); ASPARTATE AMINO TRANSFERASE 18 U/L (10-37); BILIRUBIN,TOTAL 0.4 MG/DL (0.1-1.0); BLOOD UREA NITROGEN 20 MG/DL (7-18); BUN/CREATININE RATIO 13.8 (10.0-20.0); CALCIUM 8.7 MG/DL (8.5-10.1); CHLORIDE 91 MMOL/L (99-107); CREATININE 1.45 MG/DL (0.40-0.90); GLUCOSE 112 MG/DL (70-104); POTASSIUM 3.3 MMOL/L (3.5-5.1); SODIUM 125 MMOL/L (135-145); TOTAL CARBON DIOXIDE 26.4 MMOL/L (24-32); TOTAL PROTEIN 6.2 G/DL (6.4-8.2); eCRCL 20 ML/MIN; eGFR 34 ML/MIN
[2023-06-25] MEDS ORDERED: normal saline 1000ml 1,000 ML IV SCH (07:25)
[2023-06-25] MEDS: clopidogrel 75mg tablet PO SCH (07:48)
[2023-06-25] MEDS: apixaban 2.5mg tablet PO SCH (07:49)
[2023-06-25] MEDS: aspirin 81mg tab.chew PO SCH (07:49)
[2023-06-25] MEDS: multivitamins, therapeutics tablet PO SCH (07:49)
[2023-06-25] MEDS: cholecalciferol (vitamin D3) 1,000 unit (25mcg) tablet PO SCH (07:50)
[2023-06-25] MEDS: ascorbic acid 500mg tablet PO SCH (07:50)
[2023-06-25] MEDS: levoTHYROXINE 88mcg tablet PO SCH (07:50)
[2023-06-25] MEDS: metoprolol tartrate 50mg tablet PO SCH (07:57)
[2023-06-25] MEDS: spironolactone 25 MG tablet PO SCH (07:57)
[2023-06-25] MEDS: lisinopril 20mg tablet PO SCH (07:58)
[2023-06-25] MEDS: ESTRADIOL VG SCH (07:58)
[2023-06-25 08:00] VITALS: RESP 16; O2SAT 97
[2023-06-25] MEDS ORDERED: CefTRIAXone/D5W-Rocephin 1gm 50 ML IV SCH (08:00)
[2023-06-25] MEDS ORDERED: FURO-150 PO (09:02)
[2023-06-25] MEDS ORDERED: magnesium 2GM in 50ml NS 50 ML IV PRN (10:15)
[2023-06-25] MEDS ORDERED: potassium Cl 40MEQ/1/2NS 520ml 520 ML IV PRN (10:15)
[2023-06-25] MEDS ORDERED: potassium Cl 20 mEq SR tablet PO PRN ×2 (10:15)
[2023-06-25] MEDS ORDERED: magnesium Cl slow-release 64mg tablet PO PRN (10:15)
[2023-06-25] MEDS ORDERED: magnesium 4gm in 100ml NS 100 ML IV PRN (10:15)
[2023-06-25 11:45] VITALS: BP 93/47; PULSE 60; RESP 14; TEMP 98.9; O2SAT 98
--- NOTE | 2023-06-25 12:54 | NUR ---
Pt was DC'd as per 's orders. Pt was unhooked from all IV and tele. Education was provided at bedside to family and pt, all questions were answered. Pt will make appointment with their PCP. Pt gathered all belongings and took with them. Pt was wheeled down to lobby by care staff and left in private vehicle destined for home.
[2023-06-25] MEDS ORDERED: K and/or MAG REPLACEMENT MC SCH (20:00)
== END 2023-06-25 12:27 | disposition home or self-care (01) | DRG 280 ==
LOC: ER 17:36 → ED HOLD 06-22 00:31 → EDBEDREQ 06-22 06:01 → PCU 3S 06-22 07:29
PROVIDERS: ADMIT Family Medicine; ATTEND Internal Medicine
DX: I13.0 Hypertensive heart and chronic kidney disease with heart failure and stage 1 through stage 4 chronic kidney disease, or unspecified chronic kidney disease (principal); I21.A1 Myocardial infarction type 2; I50.33 Acute on chronic diastolic (congestive) heart failure; E87.1 Hypo-osmolality and hyponatremia; N17.9 Acute kidney failure, unspecified; K21.9 Gastro-esophageal reflux disease without esophagitis; D64.9 Anemia, unspecified; E03.9 Hypothyroidism, unspecified; I25.10 Atherosclerotic heart disease of native coronary artery without angina pectoris; J44.9 Chronic obstructive pulmonary disease, unspecified; N18.30 Chronic kidney disease, stage 3 unspecified; I48.91 Unspecified atrial fibrillation; I27.20 Pulmonary hypertension, unspecified; I49.5 Sick sinus syndrome; Z88.2 Allergy status to sulfonamides; Z79.899 Other long term (current) drug therapy; Z79.01 Long term (current) use of anticoagulants; Z79.82 Long term (current) use of aspirin; Z95.0 Presence of cardiac pacemaker; Z90.710 Acquired absence of both cervix and uterus; Z95.5 Presence of coronary angioplasty implant and graft; I25.2 Old myocardial infarction; Z87.891 Personal history of nicotine dependence
CPT/HCPCS: 36415; 71045; 80053; 80061; 81001; 82570; 83036; 83735; 83880; 83930; 83935; 84100; 84300; 84439; 84443; 84484; 85025; 85379; 85610; 85730; 87077; 87081; 87088; 87186; 93005; 93306; 94640; 94760; 97116; 97161; 97530; 99285; G0378; J0696; J1940; J7030; J7512

== ENCOUNTER 2023-07-02 12:42 | Emergency (ER) | payer BC ==
[~2023-07-02] VITALS: Ht 157.5 cm; Wt 52.7 kg
[~2023-07-02 12:42] MED LIST changes: -AMLO5TAB16 PO; +FURO-150 PO; +LORA-269 PO
[2023-07-02 12:55] VITALS: TEMP 97.8
[2023-07-02 13:24] LABS: ALANINE AMINOTRANSFERASE 27 U/L (12-78); ALBUMIN 3.5 G/DL (3.4-5.0); ALBUMIN/GLOBULIN RATIO 1.1 (1.1-1.5); ALKALINE PHOSPHATASE 75 IU/L (46-116); ANION GAP 8 (8-16); ASPARTATE AMINO TRANSFERASE 27 U/L (10-37); BILIRUBIN,TOTAL 0.5 MG/DL (0.1-1.0); BLOOD UREA NITROGEN 14 MG/DL (7-18); BUN/CREATININE RATIO 11.4 (10.0-20.0); CHLORIDE 93 MMOL/L (99-107); CREATININE 1.23 MG/DL (0.40-0.90); GLUCOSE 128 MG/DL (70-104); POTASSIUM 4.1 MMOL/L (3.5-5.1); SODIUM 129 MMOL/L (135-145); TOTAL CARBON DIOXIDE 27.6 MMOL/L (24-32); TOTAL PROTEIN 6.8 G/DL (6.4-8.2); eCRCL 25 ML/MIN; eGFR 41 ML/MIN
[2023-07-02 13:29] LABS: BASOPHILS % (AUTO) 0.5 % (0-1); EOSINOPHILS # (AUTO) 0.1 X10'3 (0-0.9); EOSINOPHILS % (AUTO) 1.8 % (0-6); HEMATOCRIT 34.4 % (35.0-45.0); HEMOGLOBIN 11.9 g/dl (12.0-16.0); LYMPHOCYTES # (AUTO) 1.4 X10'3 (1.1-4.8); LYMPHOCYTES % (AUTO) 29.8 % (21-51); MEAN CORPUSCULAR HEMOGLOBIN 32.7 PG (27.0-31.0); MEAN CORPUSCULAR HGB CONC 34.5 g/dL (33.0-36.5); MEAN CORPUSCULAR VOLUME 94.7 FL (78-98); MEAN PLATELET VOLUME 8.7 FL (7.4-10.4); MONOCYTES # (AUTO) 0.5 X10'3 (0-0.9); MONOCYTES % (AUTO) 10.8 % (2-12); NEUTROPHILS # (AUTO) 2.6 X10'3 (1.8-7.7); NEUTROPHILS % (AUTO) 57.1 % (42-75); PLATELET COUNT 233 X10'3 (140-440); RED BLOOD COUNT 3.63 X10'6 (4.20-5.60); RED CELL DISTRIBUTION WIDTH 13.4 % (11.5-14.5); WHITE BLOOD COUNT 4.6 X10'3 (4.5-11.0)
[2023-07-02 13:33] LABS: PRO BRAIN NATRIURETIC PEPTIDE 3264 PG/ML (0-450)
[2023-07-02 15:45] VITALS: BP 136/65; PULSE 60; RESP 18; O2SAT 98
== END 2023-07-02 17:19 | disposition home or self-care (01) ==
LOC: ER 12:43
DX: R07.9 Chest pain, unspecified (principal)
CPT/HCPCS: 36415; 71045; 80053; 83880; 84484; 85025; 93005; 99285

== ENCOUNTER 2023-07-10 03:02 | Inpatient (IN) | payer BC ==
[~2023-07-10] VITALS: Ht 157.5 cm; Wt 52.3 kg
[~2023-07-10 03:02] MED LIST changes: -ASPI-1265 PO
[2023-07-10] MEDS ORDERED: nitroGLYCERIN 1gm ointment UD TP ONE (03:40)
[2023-07-10] MEDS ORDERED: aspirin 325mg tablet PO ONE (03:40)
[2023-07-10 03:43] LABS: EOSINOPHILS # (AUTO) 0.1 X10'3 (0-0.9); LYMPHOCYTES # (AUTO) 1.9 X10'3 (1.1-4.8); MONOCYTES # (AUTO) 0.3 X10'3 (0-0.9); RED BLOOD COUNT 3.55 X10'6 (4.20-5.60)
[2023-07-10 03:47] LABS: BASOPHILS % (AUTO) 0.6 % (0-1); EOSINOPHILS % (AUTO) 2.5 % (0-6); HEMATOCRIT 33.5 % (35.0-45.0); HEMOGLOBIN 11.3 g/dl (12.0-16.0); LYMPHOCYTES % (AUTO) 39.5 % (21-51); MEAN CORPUSCULAR HEMOGLOBIN 31.9 PG (27.0-31.0); MEAN CORPUSCULAR HGB CONC 33.9 g/dL (33.0-36.5); MEAN CORPUSCULAR VOLUME 94.2 FL (78-98); MEAN PLATELET VOLUME 8.4 FL (7.4-10.4); MONOCYTES % (AUTO) 5.6 % (2-12); NEUTROPHILS # (AUTO) 2.5 X10'3 (1.8-7.7); NEUTROPHILS % (AUTO) 51.8 % (42-75); PLATELET COUNT 224 X10'3 (140-440); RED CELL DISTRIBUTION WIDTH 13.8 % (11.5-14.5); WHITE BLOOD COUNT 4.8 X10'3 (4.5-11.0)
[2023-07-10 03:56] LABS: ALANINE AMINOTRANSFERASE 30 U/L (12-78); ALBUMIN 3.6 G/DL (3.4-5.0); ALBUMIN/GLOBULIN RATIO 1.1 (1.1-1.5); ALKALINE PHOSPHATASE 78 IU/L (46-116); ANION GAP 9 (8-16); ASPARTATE AMINO TRANSFERASE 42 U/L (10-37); BILIRUBIN,TOTAL 0.4 MG/DL (0.1-1.0); BLOOD UREA NITROGEN 20 MG/DL (7-18); CALCIUM 9.3 MG/DL (8.5-10.1); CHLORIDE 95 MMOL/L (99-107); CREATININE 1.33 MG/DL (0.40-0.90); GLUCOSE 118 MG/DL (70-104); POTASSIUM 4.3 MMOL/L (3.5-5.1); PRO BRAIN NATRIURETIC PEPTIDE 4212 PG/ML (0-450); SODIUM 127 MMOL/L (135-145); TOTAL CARBON DIOXIDE 23.5 MMOL/L (24-32); TOTAL PROTEIN 6.9 G/DL (6.4-8.2); eCRCL 23 ML/MIN; eGFR 38 ML/MIN
[2023-07-10 03:58] LABS: D-DIMER 0.27 MG/L FEU (0-0.50)
[2023-07-10] MEDS ORDERED: ESTR0.5T28 (05:34)
[2023-07-10] MEDS ORDERED: magnesium Cl slow-release 64mg tablet PO PRN (06:05)
[2023-07-10] MEDS ORDERED: magnesium 4gm in 100ml NS 100 ML IV PRN (06:05)
[2023-07-10] MEDS ORDERED: acetaminophen 325mg tablet PO PRN ×2 (06:05→06:10)
[2023-07-10] MEDS ORDERED: mag hydrox/Alum hydrox/simeth 30ml oral suspension PO PRN (06:05)
[2023-07-10] MEDS ORDERED: ondansetron/PF 4mg/2ml inj IV PRN (06:05)
[2023-07-10] MEDS ORDERED: potassium Cl 40MEQ/1/2NS 520ml 520 ML IV PRN (06:05)
[2023-07-10] MEDS ORDERED: potassium Cl 20 mEq SR tablet PO PRN ×2 (06:05)
[2023-07-10] MEDS ORDERED: magnesium hydroxide 30ml (MOM) UD suspension PO PRN (06:05)
[2023-07-10] MEDS ORDERED: magnesium 2GM in 50ml NS 50 ML IV PRN (06:05)
[2023-07-10] MEDS ORDERED: traMADol 50MG tablet PO PRN (06:10)
[2023-07-10] MEDS: levoTHYROXINE 88mcg tablet PO SCH (07:00)
[2023-07-10] MEDS ORDERED: spironolactone 25 MG tablet PO SCH (08:00)
[2023-07-10] MEDS: K and/or MAG REPLACEMENT MC SCH ×2 (08:00→20:00)
[2023-07-10 08:31] LABS: MAGNESIUM 1.8 MG/DL (1.5-2.4); POTASSIUM 4.5 MMOL/L (3.5-5.1)
[2023-07-10] MEDS: lisinopril 20mg tablet PO SCH (08:44)
[2023-07-10] MEDS: metoprolol tartrate 50mg tablet PO SCH (08:44)
[2023-07-10] MEDS: docusate sod 100mg capsule PO SCH ×2 (08:45→20:09)
[2023-07-10] MEDS: apixaban 2.5mg tablet PO SCH ×2 (08:45→20:08)
[2023-07-10] MEDS: clopidogrel 75mg tablet PO SCH (08:45)
[2023-07-10] MEDS: ranolazine 500mg SR tablet (Q12H) PO SCH ×2 (08:46→20:08)
[2023-07-10] MEDS: multivitamins, therapeutics tablet PO SCH (08:46)
[2023-07-10] MEDS: furosemide 20MG tablet PO SCH (08:46)
[2023-07-10] MEDS: lansoprazole 15mg solutab PO SCH (09:37)
[2023-07-10 13:00] VITALS: BP_SYST 122; BP_SYST 78; BP_DIAS 39; BP_DIAS 61; PULSE 60; PULSE 73; RESP 16; TEMP 98.6; O2SAT 97; O2SAT 98
[2023-07-10] MEDS ORDERED: ondansetron 4mg rapidly disintigrating tab PO PRN (13:18)
[2023-07-10] MEDS: amiodarone 200mg tablet PO SCH (15:25)
[2023-07-10 16:33] VITALS: RESP 15; O2SAT 98
[2023-07-10 18:00] VITALS: BP 140/70; PULSE 56; RESP 18; TEMP 97.1; O2SAT 96
[2023-07-10 20:00] VITALS: RESP 18; O2SAT 96
[2023-07-10] MEDS: Melatonin 3mg tablet PO SCH (21:40)
[2023-07-10] MEDS: LORazepam 1 MG tablet PO SCH (21:40)
[2023-07-10 22:00] VITALS: BP 136/68; PULSE 60; RESP 16; TEMP 98.9; O2SAT 97
[2023-07-11] VITALS (7 sets, daily range): BP systolic 112–172; BP diastolic 59–72; PULSE 60–62; RESP 14–21; TEMP 97.4–98.1; O2SAT 96–99
[2023-07-11] MEDS: levoTHYROXINE 88mcg tablet PO SCH ×2 (07:00→16:19)
[2023-07-11] MEDS: multivitamins, therapeutics tablet PO SCH (08:00)
[2023-07-11] MEDS: K and/or MAG REPLACEMENT MC SCH ×2 (08:00→20:00)
[2023-07-11] MEDS: clopidogrel 75mg tablet PO SCH ×2 (08:00→16:19)
[2023-07-11] MEDS: lansoprazole 15mg solutab PO SCH ×2 (08:00→16:20)
[2023-07-11] MEDS: docusate sod 100mg capsule PO SCH ×2 (08:00→22:16)
[2023-07-11] MEDS: apixaban 2.5mg tablet PO SCH ×2 (08:00→22:15)
[2023-07-11] MEDS: ranolazine 500mg SR tablet (Q12H) PO SCH ×2 (08:00→22:15)
[2023-07-11] MEDS: furosemide 20MG tablet PO SCH ×2 (08:00→16:19)
[2023-07-11] MEDS: metoprolol tartrate 50mg tablet PO SCH (08:00)
[2023-07-11] MEDS: lisinopril 20mg tablet PO SCH ×2 (08:00→16:28)
[2023-07-11 08:55] LABS: BASOPHILS % (AUTO) 0.5 % (0-1); EOSINOPHILS # (AUTO) 0.1 X10'3 (0-0.9); EOSINOPHILS % (AUTO) 2.8 % (0-6); HEMATOCRIT 34.1 % (35.0-45.0); HEMOGLOBIN 11.4 g/dl (12.0-16.0); MEAN CORPUSCULAR HEMOGLOBIN 31.8 PG (27.0-31.0); MEAN CORPUSCULAR HGB CONC 33.6 g/dL (33.0-36.5); MEAN CORPUSCULAR VOLUME 94.7 FL (78-98); MEAN PLATELET VOLUME 8.6 FL (7.4-10.4); MONOCYTES # (AUTO) 0.3 X10'3 (0-0.9); NEUTROPHILS # (AUTO) 1.9 X10'3 (1.8-7.7); NEUTROPHILS % (AUTO) 56.7 % (42-75); PLATELET COUNT 200 X10'3 (140-440); RED CELL DISTRIBUTION WIDTH 13.6 % (11.5-14.5); WHITE BLOOD COUNT 3.3 X10'3 (4.5-11.0)
[2023-07-11 09:09] LABS: ALANINE AMINOTRANSFERASE 26 U/L (12-78); ALBUMIN 3.3 G/DL (3.4-5.0); ALBUMIN/GLOBULIN RATIO 1.1 (1.1-1.5); ALKALINE PHOSPHATASE 66 IU/L (46-116); ANION GAP 8 (8-16); ASPARTATE AMINO TRANSFERASE 24 U/L (10-37); BILIRUBIN,TOTAL 0.6 MG/DL (0.1-1.0); BLOOD UREA NITROGEN 16 MG/DL (7-18); BUN/CREATININE RATIO 13.3 (10.0-20.0); CHLORIDE 96 MMOL/L (99-107); GLUCOSE 101 MG/DL (70-104); MAGNESIUM 1.8 MG/DL (1.5-2.4); POTASSIUM 4.1 MMOL/L (3.5-5.1); SODIUM 130 MMOL/L (135-145); TOTAL CARBON DIOXIDE 26.5 MMOL/L (24-32); TOTAL PROTEIN 6.3 G/DL (6.4-8.2); eCRCL 26 ML/MIN; eGFR 42 ML/MIN
[2023-07-11] MEDS: amiodarone 200mg tablet PO SCH (16:28)
[2023-07-11] MEDS ORDERED: HYDROcodone/acetaminophen 10/325mg tab PO PRN (16:35)
[2023-07-11] MEDS: LORazepam 1 MG tablet PO SCH (22:15)
[2023-07-11] MEDS: Melatonin 3mg tablet PO SCH (22:16)
[2023-07-12] VITALS (12 sets, daily range): BP systolic 112–156; BP diastolic 55–74; PULSE 58–62; RESP 11–22; TEMP 96.9–98.5; O2SAT 95–98
[2023-07-12 07:24] LABS: BASOPHILS % (AUTO) 0.8 % (0-1); EOSINOPHILS # (AUTO) 0.1 X10'3 (0-0.9); EOSINOPHILS % (AUTO) 2.8 % (0-6); HEMATOCRIT 34.3 % (35.0-45.0); HEMOGLOBIN 11.6 g/dl (12.0-16.0); LYMPHOCYTES # (AUTO) 1.1 X10'3 (1.1-4.8); LYMPHOCYTES % (AUTO) 28.2 % (21-51); MEAN CORPUSCULAR HEMOGLOBIN 31.8 PG (27.0-31.0); MEAN CORPUSCULAR HGB CONC 33.9 g/dL (33.0-36.5); MEAN CORPUSCULAR VOLUME 93.8 FL (78-98); MEAN PLATELET VOLUME 8.4 FL (7.4-10.4); MONOCYTES # (AUTO) 0.4 X10'3 (0-0.9); MONOCYTES % (AUTO) 10.6 % (2-12); NEUTROPHILS # (AUTO) 2.2 X10'3 (1.8-7.7); NEUTROPHILS % (AUTO) 57.6 % (42-75); PLATELET COUNT 197 X10'3 (140-440); RED BLOOD COUNT 3.66 X10'6 (4.20-5.60); RED CELL DISTRIBUTION WIDTH 13.5 % (11.5-14.5); WHITE BLOOD COUNT 3.8 X10'3 (4.5-11.0)
[2023-07-12 07:35] LABS: ALANINE AMINOTRANSFERASE 21 U/L (12-78); ALBUMIN 3.1 G/DL (3.4-5.0); ALKALINE PHOSPHATASE 65 IU/L (46-116); AMYLASE 32 U/L (25-115); ANION GAP 7 (8-16); ASPARTATE AMINO TRANSFERASE 16 U/L (10-37); BILIRUBIN,TOTAL 0.5 MG/DL (0.1-1.0); BLOOD UREA NITROGEN 14 MG/DL (7-18); BUN/CREATININE RATIO 12.5 (10.0-20.0); CALCIUM 8.8 MG/DL (8.5-10.1); CHLORIDE 95 MMOL/L (99-107); CREATININE 1.12 MG/DL (0.40-0.90); GLUCOSE 88 MG/DL (70-104); LIPASE 25 U/L (16-77); MAGNESIUM 1.7 MG/DL (1.5-2.4); POTASSIUM 4.1 MMOL/L (3.5-5.1); SODIUM 130 MMOL/L (135-145); TOTAL PROTEIN 6.1 G/DL (6.4-8.2); eCRCL 27 ML/MIN; eGFR 46 ML/MIN
[2023-07-12] MEDS: apixaban 2.5mg tablet PO SCH ×2 (08:00→21:23)
[2023-07-12] MEDS: K and/or MAG REPLACEMENT MC SCH ×2 (08:00→20:00)
[2023-07-12] MEDS: ranolazine 500mg SR tablet (Q12H) PO SCH ×2 (08:34→21:23)
[2023-07-12] MEDS: lansoprazole 15mg solutab PO SCH (08:35)
[2023-07-12] MEDS: lisinopril 20mg tablet PO SCH (08:37)
[2023-07-12] MEDS: docusate sod 100mg capsule PO SCH ×2 (08:38→21:22)
[2023-07-12] MEDS: multivitamins, therapeutics tablet PO SCH (08:38)
[2023-07-12] MEDS: furosemide 20MG tablet PO SCH (08:38)
[2023-07-12] MEDS: levoTHYROXINE 88mcg tablet PO SCH (08:39)
[2023-07-12] MEDS: metoprolol tartrate 50mg tablet PO SCH (08:40)
[2023-07-12] MEDS: clopidogrel 75mg tablet PO SCH (08:40)
[2023-07-12] MEDS: amiodarone 200mg tablet PO SCH (14:59)
[2023-07-12] MEDS ORDERED: MIDAZolam 1 MG/ML 5ML VIAL ONE (15:48)
[2023-07-12] MEDS ORDERED: LIDOcaine Viscous 15ml cup ONE (15:48)
[2023-07-12] MEDS: Melatonin 3mg tablet PO SCH (21:22)
[2023-07-12] MEDS: LORazepam 1 MG tablet PO SCH (21:22)
[2023-07-13 02:00] VITALS: BP 126/56; PULSE 60; RESP 16; TEMP 98.5; O2SAT 98
[2023-07-13 06:00] VITALS: BP 100/45; PULSE 68; RESP 11; TEMP 97.9; O2SAT 93
[2023-07-13 07:51] LABS: BASOPHILS % (AUTO) 0.7 % (0-1); EOSINOPHILS # (AUTO) 0.1 X10'3 (0-0.9); EOSINOPHILS % (AUTO) 2.2 % (0-6); HEMATOCRIT 37.6 % (35.0-45.0); HEMOGLOBIN 12.5 g/dl (12.0-16.0); LYMPHOCYTES # (AUTO) 1.5 X10'3 (1.1-4.8); LYMPHOCYTES % (AUTO) 36.8 % (21-51); MEAN CORPUSCULAR HEMOGLOBIN 31.5 PG (27.0-31.0); MEAN CORPUSCULAR HGB CONC 33.3 g/dL (33.0-36.5); MEAN CORPUSCULAR VOLUME 94.6 FL (78-98); MEAN PLATELET VOLUME 8.3 FL (7.4-10.4); MONOCYTES # (AUTO) 0.5 X10'3 (0-0.9); MONOCYTES % (AUTO) 11.2 % (2-12); NEUTROPHILS # (AUTO) 2.1 X10'3 (1.8-7.7); NEUTROPHILS % (AUTO) 49.1 % (42-75); PLATELET COUNT 249 X10'3 (140-440); RED BLOOD COUNT 3.98 X10'6 (4.20-5.60); RED CELL DISTRIBUTION WIDTH 13.7 % (11.5-14.5); WHITE BLOOD COUNT 4.2 X10'3 (4.5-11.0)
[2023-07-13 08:00] VITALS: RESP 11; O2SAT 98
[2023-07-13] MEDS: K and/or MAG REPLACEMENT MC SCH (08:00)
[2023-07-13] MEDS: metoprolol tartrate 50mg tablet PO SCH (08:00)
[2023-07-13 08:06] LABS: ALANINE AMINOTRANSFERASE 20 U/L (12-78); ALBUMIN 3.5 G/DL (3.4-5.0); ALBUMIN/GLOBULIN RATIO 1.1 (1.1-1.5); ALKALINE PHOSPHATASE 68 IU/L (46-116); ANION GAP 6 (8-16); ASPARTATE AMINO TRANSFERASE 15 U/L (10-37); BILIRUBIN,TOTAL 0.5 MG/DL (0.1-1.0); BLOOD UREA NITROGEN 17 MG/DL (7-18); BUN/CREATININE RATIO 12.7 (10.0-20.0); CHLORIDE 94 MMOL/L (99-107); CREATININE 1.34 MG/DL (0.40-0.90); GLUCOSE 102 MG/DL (70-104); MAGNESIUM 1.7 MG/DL (1.5-2.4); POTASSIUM 3.8 MMOL/L (3.5-5.1); SODIUM 128 MMOL/L (135-145); TOTAL CARBON DIOXIDE 27.7 MMOL/L (24-32); TOTAL PROTEIN 6.8 G/DL (6.4-8.2); eCRCL 23 ML/MIN; eGFR 37 ML/MIN
[2023-07-13] MEDS: levoTHYROXINE 88mcg tablet PO SCH (08:41)
[2023-07-13] MEDS: multivitamins, therapeutics tablet PO SCH (08:41)
[2023-07-13] MEDS: ranolazine 500mg SR tablet (Q12H) PO SCH (08:41)
[2023-07-13] MEDS: lisinopril 20mg tablet PO SCH (08:42)
[2023-07-13] MEDS: docusate sod 100mg capsule PO SCH (08:42)
[2023-07-13] MEDS: lansoprazole 15mg solutab PO SCH (08:43)
[2023-07-13] MEDS: apixaban 2.5mg tablet PO SCH (08:44)
[2023-07-13] MEDS: clopidogrel 75mg tablet PO SCH (08:44)
[2023-07-13] MEDS: furosemide 20MG tablet PO SCH (08:45)
[2023-07-13 08:47] VITALS: BP 104/53; PULSE 60; RESP 16; O2SAT 97
[2023-07-13 11:00] VITALS: BP 134/54; PULSE 60; RESP 12; TEMP 98.8; O2SAT 97
[2023-07-13] MEDS ORDERED: RANO500T6 PO (13:39)
[2023-07-13] MEDS ORDERED: LANS30CA37 PO (13:39)
[2023-07-13] MEDS: amiodarone 200mg tablet PO SCH (14:00)
== END 2023-07-13 16:09 | disposition home or self-care (01) | DRG 313 ==
LOC: ER 03:02 → ED HOLD 06:09 → PCU 3S 13:06
PROVIDERS: ADMIT Internal Medicine; ATTEND Family Medicine
PROC: 0DB68ZZ Excision of Stomach, Via Natural or Artificial Opening Endoscopic (ICD-10-PCS; principal; 2023-07-12)
DX: R07.89 Other chest pain (principal); E87.1 Hypo-osmolality and hyponatremia; J44.9 Chronic obstructive pulmonary disease, unspecified; I25.10 Atherosclerotic heart disease of native coronary artery without angina pectoris; N18.30 Chronic kidney disease, stage 3 unspecified; I12.9 Hypertensive chronic kidney disease with stage 1 through stage 4 chronic kidney disease, or unspecified chronic kidney disease; E03.9 Hypothyroidism, unspecified; I48.91 Unspecified atrial fibrillation; K21.9 Gastro-esophageal reflux disease without esophagitis; D64.9 Anemia, unspecified; K31.7 Polyp of stomach and duodenum; K44.9 Diaphragmatic hernia without obstruction or gangrene; Z88.2 Allergy status to sulfonamides; Z79.01 Long term (current) use of anticoagulants; Z79.899 Other long term (current) drug therapy; Z90.710 Acquired absence of both cervix and uterus; Z95.0 Presence of cardiac pacemaker
CPT/HCPCS: 36415; 43251; 71045; 74220; 80053; 82150; 83690; 83735; 83880; 84132; 84484; 85025; 85379; 87081; 99152; 99285; A4620; A6213; C1889; G0378; J2250; J7030

== ENCOUNTER 2023-12-30 17:24 | Emergency (ER) | payer BC ==
[~2023-12-30] VITALS: Ht 157.5 cm; Wt 50.0 kg
[~2023-12-30 17:24] MED LIST changes: -ACET-1995 PO; +ESTR0.5T28; +LANS30CA37 PO; -PANT20TA18 PO; +RANO500T6 PO
[2023-12-30 18:11] LABS: BASOPHILS % (AUTO) 0.9 % (0-1); EOSINOPHILS # (AUTO) 0.1 X10'3 (0-0.9); EOSINOPHILS % (AUTO) 2.3 % (0-6); HEMATOCRIT 32.4 % (35.0-45.0); HEMOGLOBIN 11.2 g/dl (12.0-16.0); LYMPHOCYTES # (AUTO) 1.8 X10'3 (1.1-4.8); LYMPHOCYTES % (AUTO) 41.7 % (21-51); MEAN CORPUSCULAR HGB CONC 34.5 g/dL (33.0-36.5); MEAN CORPUSCULAR VOLUME 95.7 FL (78-98); MONOCYTES # (AUTO) 0.4 X10'3 (0-0.9); MONOCYTES % (AUTO) 8.9 % (2-12); NEUTROPHILS % (AUTO) 46.2 % (42-75); PLATELET COUNT 225 X10'3 (140-440); RED BLOOD COUNT 3.38 X10'6 (4.20-5.60); RED CELL DISTRIBUTION WIDTH 12.7 % (11.5-14.5); WHITE BLOOD COUNT 4.4 X10'3 (4.5-11.0)
[2023-12-30 18:22] LABS: ALBUMIN 3.4 G/DL (3.4-5.0); ANION GAP 9 (8-16); BLOOD UREA NITROGEN 10 MG/DL (7-18); BUN/CREATININE RATIO 12.8 (10.0-20.0); CHLORIDE 99 MMOL/L (99-107); CREATININE 0.78 MG/DL (0.40-0.90); GLUCOSE 108 MG/DL (70-104); POTASSIUM 3.8 MMOL/L (3.5-5.1); PRO BRAIN NATRIURETIC PEPTIDE 619 PG/ML (0-450); SODIUM 135 MMOL/L (135-145); TOTAL CARBON DIOXIDE 27.3 MMOL/L (24-32); eCRCL 39 ML/MIN; eGFR 70 ML/MIN
[2023-12-30] MEDS: pantoprazole 40MG/NS 100ML BAG 100 ML IV ONE (21:47)
[2023-12-30] MEDS ORDERED: pantoprazole 40 MG vial IV SCH (21:50)
[2023-12-30] MEDS: mag hydrox/Alum hydrox/simeth 30ml oral suspension PO ONE (21:51)
[2023-12-30] MEDS: LIDOcaine 2% Viscous 15ml cup MM ONE (21:51)
[2023-12-30] MEDS: pantoprazole 40 MG vial IV ONE (21:52)
[2023-12-30 21:54] VITALS: BP 174/82; PULSE 81; RESP 18; O2SAT 98
== END 2023-12-31 00:01 | disposition home or self-care (01) ==
LOC: ER 17:24
DX: K29.70 Gastritis, unspecified, without bleeding (principal); R07.89 Other chest pain; I10 Essential (primary) hypertension; J44.9 Chronic obstructive pulmonary disease, unspecified; Z88.2 Allergy status to sulfonamides; Z88.5 Allergy status to narcotic agent; Z79.899 Other long term (current) drug therapy; Z90.710 Acquired absence of both cervix and uterus; Z87.891 Personal history of nicotine dependence
CPT/HCPCS: 36415; 71045; 80048; 83880; 84484; 85025; 93005; 96374; 99285; C9113